=== PATIENT | female | born 1985 | race Caucasian/White ===

== ENCOUNTER 2019-02-05 19:46 | Emergency (ER) | payer OTHER ==
--- NOTE | 2019-02-05 21:18 | XR ---
EXAMINATION TYPE: XR foot limited LT DATE OF EXAM: 02/05/2019 COMPARISON: NONE HISTORY: Foot pain TECHNIQUE: 3 views FINDINGS: I see no fracture nor dislocation. The toes appear intact. Second toe appears intact. There are no erosions. IMPRESSION: Negative left foot exam.
--- NOTE | 2019-02-05 21:33 | ED ---
Extremity Problem HPI - General Chief complaint: Extremity Problem,Nontraumatic Stated complaint: Lft Toe Injury Time Seen by Provider: 02/05/19 20:36 Source: patient Mode of arrival: wheelchair Limitations: no limitations - History of Present Illness Initial comments: Patient is a 33-year-old female presenting to the emergency Department with complaints of pain in her left second toe that started suddenly this morning. Patient states she felt fine last night and then woke up this morning to her toe hurting. Patient states it hurts to walk. Patient denies any injuries or trauma to the toe. Patient denies any previous injuries to her toes or foot. Denies being on any medications. Denies history of gout or infected joints. Patient has no other pertinent past medical history. Upon arrival to ER, vital signs are stable. Patient has no other complaints at this time. - Related Data Home Medications Medication Instructions Recorded Confirmed No Known Home Medications 02/05/19 02/05/19 Allergies Allergy/AdvReac Type Severity Reaction Status Date / Time No Known Allergies Allergy Verified 02/05/19 20:30 Review of Systems ROS Statement: Those systems with pertinent positive or pertinent negative responses have been documented in the HPI. ROS Other: All systems not noted in ROS Statement are negative. Past Medical History Past Medical History: No Reported History History of Any Multi-Drug Resistant Organisms: None Reported Past Surgical History: Bowel Resection, Section Additional Past Surgical History / Comment(s): reversal ostomy Past Psychological History: No Psychological Hx Reported Smoking Status: Current every day smoker Past Alcohol Use History: Occasional Past Drug Use History: None Reported General Exam - General Exam Comments Initial Comments: GENERAL: Well-appearing, well-nourished and in no acute distress. HEAD: Atraumatic, normocephalic. EYES: Pupils equal round and reactive to light, extraocular movements intact, sclera anicteric, conjunctiva are normal. ENT: TMs normal, nares patent, oropharynx clear without exudates. Moist mucous membranes. NECK: Normal range of motion, supple without lymphadenopathy or JVD. LUNGS: Breath sounds clear to auscultation bilaterally and equal. No wheezes rales or rhonchi. HEART: Regular rate and rhythm without murmurs, rubs or gallops. ABDOMEN: Soft, nontender, normoactive bowel sounds. No guarding, no rebound. No masses appreciated. : Deferred EXTREMITIES: Patient has pain with palpation of the left second digit. There is no swelling or bruising of the toe. The toe does appear slightly erythematous. There is no pain in the left metatarsals or the rest of the left foot. Patient has full ankle range of motion. Neurovascular intact. NEUROLOGICAL: Cranial nerves II through XII grossly intact. Normal speech, normal gait. PSYCH: Normal mood, normal affect. SKIN: Warm, Dry, normal turgor, no rashes or lesions noted. Limitations: no limitations Course Vital Signs 02/05/19 02/05/19 02/05/19 20:01 20:39 21:41 Temperature 98.4 F 98.9 F 98.1 F Pulse Rate 107 H 97 92 Respiratory 18 18 16 Rate Blood Pressure 116/76 118/78 O2 Sat by Pulse 98 100 98 Oximetry Medical Decision Making - Medical Decision Making Patient is a 33-year-old female presenting with left second digit pain that started this morning. Patient denies any trauma or injuries to her foot. Patient states she just woke up this morning with the pain. On exam patient has mild tenderness to palpation of the left second digit. There is no swelling or bruising of the digit. X-rays reveal no acute fractures dislocations. Discussed with patient this could be a mild contusion or soft tissue injury. Patient will use ice and/or heat as well as Motrin. Patient will follow up with PCP if symptoms persist. Patient is in agreement with this plan of care. Patient is stable for discharge at this time. Return parameters were discussed with the patient and she verbalized understanding. Disposition Clinical Impression: Toe pain, left Disposition: HOME SELF-CARE Condition: Stable Instructions (If sedation given, give patient instructions): Arthralgia (ED) Additional Instructions: Please return to the Emergency Department if symptoms worsen or any other concerns. Follow-up with PCP if symptoms persist. Use ice and/or heat to the area as well as Motrin. Is patient prescribed a controlled substance at d/c from ED?: No Referrals: None,Stated [Primary Care Provider] - 1-2 days
[2019-02-05 21:42] VITALS: BP 118/78; PULSE 92; RESP 16; TEMP 98.1
== END 2019-02-05 21:41 | disposition home or self-care (01) ==
LOC: EC 19:46
DX: M79.675 Pain in left toe(s) (principal); F17.200 Nicotine dependence, unspecified, uncomplicated
CPT/HCPCS: 99283